=== PATIENT | female | born 1950 | race Native Hawaiian/Other Pacific Islander ===

== ENCOUNTER 2018-05-31 09:57 | Outpatient (CLI) | payer OTHER | END 2018-05-31 21:51 | disposition home or self-care (01) | LOC: RAD 09:57 | DX: E55.9 Vitamin D deficiency, unspecified (principal); Z78.0 Asymptomatic menopausal state ==

== ENCOUNTER 2018-11-15 11:56 | Outpatient (CLI) | payer OTHER ==
[2018-11-15 12:27] LABS: PLATELET COUNT 313 K/uL (152-353)
== END 2018-11-15 16:00 | disposition home or self-care (01) ==
LOC: LABW 11:56
PROVIDERS: Internal Medicine
DX: N18.3 Chronic kidney disease, stage 3 (moderate) (principal); N25.81 Secondary hyperparathyroidism of renal origin; R82.998 Other abnormal findings in urine
CPT/HCPCS: 36415; 80053; 81000; 82306; 82330; 82570; 83735; 83970; 84100; 84155; 85027; 87086; 87088

== ENCOUNTER 2019-03-09 14:26 | Outpatient (CLI) | payer OTHER ==
[2019-03-09 14:59] LABS: POTASSIUM 4.2 mmol/L (3.6-5.2)
[2019-03-09 15:02] LABS: PLATELET COUNT 335 K/uL (152-353)
== END 2019-03-09 21:47 | disposition home or self-care (01) ==
LOC: LABW 14:26
PROVIDERS: Internal Medicine
DX: E11.22 Type 2 diabetes mellitus with diabetic chronic kidney disease (principal); N18.3 Chronic kidney disease, stage 3 (moderate); N25.81 Secondary hyperparathyroidism of renal origin
CPT/HCPCS: 36415; 80053; 81000; 82306; 82330; 82570; 83036; 83735; 84100; 84155; 85027